=== PATIENT | male | born 1985 | race Two or more races ===

== ENCOUNTER 2018-06-26 17:58 | Emergency (ER) | payer SELFPAY ==
[~2018-06-26] VITALS: Ht 167.6 cm; Wt 77.1 kg
[2018-06-26] MEDS ORDERED: KETOROLAC TROMETH 30 MG/ML 1ML VIAL IV ONE (19:00)
[2018-06-26] MEDS ORDERED: PROPOFOL 100 ML IV ONE (19:32)
[2018-06-26] MEDS ORDERED: SODIUM CHLORIDE 0.9% 1,000 ML IV ONE (19:45)
[2018-06-26 20:00] VITALS: BP 139/75
[2018-06-26] MEDS ORDERED: PROPOFOL 10 MG/ML 20 ML IV ONE (20:00)
== END 2018-06-26 20:43 | disposition home or self-care (01) ==
LOC: ER 17:58
DX: S43.084A Other dislocation of right shoulder joint, initial encounter (principal); W19.XXXA Unspecified fall, initial encounter; Y93.89 Activity, other specified; Y99.8 Other external cause status; Y92.89 Other specified places as the place of occurrence of the external cause
CPT/HCPCS: 23650; 73020; 73030; 96374; 99152; 99285; J1885; J2704